=== PATIENT | female | born 1940 | race Caucasian/White ===

== ENCOUNTER 2019-10-20 10:18 | Emergency (ER) | payer MEDICARE, MEDICAID ==
[~2019-10-20] VITALS: Ht 167.6 cm; Wt 81.6 kg
[2019-10-20 10:18] VITALS: BP_SYST 104
--- NOTE | 2019-10-20 10:21 | NUR ---
Patient to ER bed 3 to gown for evaluation. Side rails up. Report given to LUCIE Whitaker.
--- NOTE | 2019-10-20 10:25 | NUR ---
Pt bib [facility] from [facility] with c/o syncope, no LOC. Pt is slightly confused, history of Alzheimer's. V/S stable, pt is afebrile. Currently resting in bed, will contiue to monitor
[2019-10-20] MEDS ORDERED: MELO15TA13 PO (10:28)
[2019-10-20] MEDS ORDERED: ROSU40TA23 PO (10:28)
[2019-10-20] MEDS ORDERED: LORA10TA64 PO (10:28)
[2019-10-20] MEDS ORDERED: QUET50TA79 PO (10:28)
[2019-10-20] MEDS ORDERED: CHOL100038 PO (10:28)
[2019-10-20] MEDS ORDERED: ALLO100T91 PO (10:28)
[2019-10-20] MEDS ORDERED: METO25TA6 PO (10:28)
[2019-10-20] MEDS ORDERED: DONE10TA4 PO (10:28)
--- NOTE | 2019-10-20 10:28 | NUR ---
Medication reconciliation completed with information provided by [facility]. Any prior medication reconciliation on file was reviewed and corrected.
--- NOTE | 2019-10-20 10:30 | NUR ---
EKG performed at BS by RN. Physician given copy of EKG for review.
--- NOTE | 2019-10-20 10:35 | NUR ---
ER Dr. Sellers at bedside examining patient.
--- NOTE | 2019-10-20 11:00 | NUR ---
# 20 gauge angiocath placed to RAC. Use of asceptic technique. Opsite placed over site. Blood return noted. Blood for lab drawn from site. Flushed with 10 cc of normal saline. No evidence of infiltration noted. Patient tolerated well.
--- NOTE | 2019-10-20 11:20 | NUR ---
Urine sample collected and dipped.
[2019-10-20 11:25] LABS: BASOPHILS % (AUTO) 0.6 % (0.0-2.0); EOSINOPHILS # (AUTO) 0.3 K/uL (0.0-0.4); EOSINOPHILS % (AUTO) 5.7 % (0.0-4.0); HEMATOCRIT 36.3 % (36-48); HEMOGLOBIN 11.8 g/dL (12.0-16.0); LYMPHOCYTES # (AUTO) 2.5 K/uL (1.0-5.5); LYMPHOCYTES % (AUTO) 44.9 % (20.5-51.5); MEAN CORPUSCULAR HEMOGLOBIN 31 pg (27-31); MEAN CORPUSCULAR HGB CONC 32 % (32-36); MEAN CORPUSCULAR VOLUME 94 fL (79.0-98.0); MONOCYTES # (AUTO) 0.7 K/uL (0.0-1.0); MONOCYTES % (AUTO) 13.1 % (1.7-9.3); NEUTROPHILS % (AUTO) 35.7 % (40.0-70.0); PLATELET COUNT (AUTO) 173 K/uL (130-430); RED BLOOD CELL COUNT(AUTO) 3.86 MIL/uL (4.2-6.2); RED CELL DISTRIBUTION WIDTH 14.2 % (9.0-15.0); WHITE BLOOD COUNT (AUTO) 5.5 K/uL (4.8-10.8)
[2019-10-20 11:34] LABS: ANION GAP 5 (5-15); CALCIUM 9.1 mg/dL (8.4-11.0); CHLORIDE 105 mmol/L (98-107); CREATININE 1.44 mg/dL (0.55-1.30); GLUCOSE 85 mg/dL (70-99); POTASSIUM 4.1 mmol/L (3.5-5.1); SODIUM SERUM 136 mmol/L (136-145); UREA NITROGEN, BLOOD 23 mg/dL (8-21)
[2019-10-20 11:41] LABS: ALANINE AMINOTRANSFERASE 14 U/L (12-78); ALBUMIN 2.8 g/dL (3.4-4.8); ASPARTATE AMINOTRANSFERASE 23 U/L (10-37); TOTAL BILIRUBIN 0.2 mg/dL (0.0-1.0)
[2019-10-20 12:40] VITALS: BP_SYST 104
--- NOTE | 2019-10-20 12:40 | NUR ---
Patient given written and verbal discharge instructions and verbalizes understanding. ER MD discussed with patient the results and treatment provided. Patient in stable condition. ID arm band removed. IV catheter removed intact and dressing applied, no active bleeding. Rx of Macrobid given. Patient educated on pain management and to follow up with PMD. Pain Scale 0. Opportunity for questions provided and answered. Medication side effect fact sheet provided. Pt sent back to [facility], report called to [place].
== END 2019-10-20 12:40 | disposition home or self-care (01) ==
LOC: SED 10:18
DX: R55 Syncope and collapse (principal); Z79.899 Other long term (current) drug therapy
CPT/HCPCS: 36415; 71045; 80053; 81002; 82550-TC; 83880; 84484; 85025; 93005; 99285